=== PATIENT | male | born 1985 | race Caucasian/White ===

== ENCOUNTER 2017-11-23 09:31 | Emergency (ER) | payer BC ==
[~2017-11-23] VITALS: Ht 193 cm; Wt 77.1 kg
[2017-11-23] MEDS ORDERED: NKM (09:48)
[2017-11-23 09:52] VITALS: BP 129/70
[2017-11-23] MEDS ORDERED: CLEOCIN HCL300 MG PO (10:38)
[2017-11-23] MEDS ORDERED: clindamycin (10:38)
[2017-11-23 10:47] VITALS: BP 129/70
--- NOTE | 2017-11-23 14:55 | Emergency Room Report ---
History of Present Illness General Chief Complaint: Pain Source: Patient Present Illness HPI 32-year-old male, presenting with redness and sore on left index finger. Patient states it has been that way for one week, he lacerated himself and expressed purulent discharge. No increased swelling of hand after his incision. No fever no chills Allergies: Coded Allergies: PENICILLINS (Verified Allergy, Unknown, 11/23/17) Patient History Past Medical History: see triage record Past Surgical History: none Pertinent Family History: none Reviewed Nursing Documentation: PMH: Agreed, PSxH: Agreed Nursing Documentation-PMH Past Medical History: No Stated History Review of Systems All Other Systems: negative except mentioned in HPI Physical Exam Vital Signs Date Time Temp Pulse Resp B/P (MAP) Pulse Ox O2 Delivery O2 Flow Rate FiO2 11/23/17 09:42 97.5 98 16 136/73 100 Room Air Sp02 EP Interpretation: reviewed, normal General Appearance: normal inspection, well appearing, no apparent distress, alert, GCS 15, non-toxic Head: normocephalic, atraumatic Eyes: bilateral eye normal inspection, bilateral eye PERRL, bilateral eye EOMI ENT: normal ENT inspection, normal pharynx, normal voice, moist mucus membranes Neck: normal inspection, full range of motion, supple Respiratory: normal inspection, lungs clear, normal breath sounds, no respiratory distress, no retraction, no wheezing, speaking full sentences, chest symmetrical Cardiovascular #1: normal inspection, regular rate, rhythm, normal capillary refill Cardiovascular #2: 2+ radial (R), 2+ radial (L) Gastrointestinal: normal inspection, non tender, soft, non-distended, no guarding Genitourinary: no CVA tenderness Musculoskeletal: other - Left index finger dorsal surface with area of erythema , appears to be abscess that was already labs, no expression of purulent drainage, no fusiform swelling of the finger, has full range of motion, no tenderness along the tendon sheath Neurologic: normal inspection, alert, oriented x3, responsive, motor strength/ tone normal, sensory intact, normal gait, speech normal Psychiatric: normal inspection, judgement/insight normal, memory normal Skin: normal inspection, normal color, no rash, warm/dry, well hydrated, normal turgor Medical Decision Making Diagnostic Impression: Primary Impression: Abscess of finger ER Course 32-year-old male, left finger pain DDX: Appears to be abscess that was already drained Plan: None emergency room ER course: Patient has remained stable during ED stay. Disposition: Patient is to be discharged to home. Prescriptions given are Clindamycin as patient is allergic to penicillin Patient is instructed to follow up with their primary care doctor within 3-4 days for wound recheck Strict return precautions discussed with patient such as fever, chills, worsening/severe pain and swelling of left finger, inability to move the finger. Patient verbalizes understanding and agrees with plan. Please note that this Emergency Department Report was dictated using [employer] technology software, occasionally this can lead to erroneous entry secondary to interpretation by the dictation equipment Last Vital Signs Date Time Temp Pulse Resp B/P (MAP) Pulse Ox O2 Delivery O2 Flow Rate FiO2 11/23/17 10:47 97.5 59 16 129/70 100 Room Air 97.5 Disposition: HOME, SELF-CARE Condition: Stable Scripts Clindamycin Hcl (CLEOCIN HCL) 300 Mg Capsule 300 MG PO TID for 7 Days, #21 CAP 0 Refills Prov: Melisa Jean M.D. 11/23/17 [clindamycin] No Conflict Check Prov: Melisa Jean M.D. 11/23/17 Patient Instructions: Abscess, [id number] Additional Instructions: PLEASE FOLLOW UP WITH A DOCTOR IN 3-4 DAYS FOR WOUND RECHECK PLEASE COME BACK TO THE EMERGENCY ROOM IF YOU ARE EXPERIENCING HIGH FEVERS, RAPID SPREAD OF RASH, INCREASED SWELLING OF YOUR FINGER. Melisa Jean M.D. Nov 23, 2017 14:55
== END 2017-11-23 10:49 | disposition home or self-care (01) ==
LOC: EMR 09:59
DX: L02.512 Cutaneous abscess of left hand (principal); Z88.0 Allergy status to penicillin
CPT/HCPCS: 99283